=== PATIENT | male | born 1970 | race Caucasian/White ===

== ENCOUNTER 2024-05-29 11:03 | Inpatient (IN) ==
--- NOTE | 2024-05-29 11:57 | Emergency Department Note ---
Impression & Plan Kidney stone on left side, Left flank pain, Calculus of proximal left ureter ED Provider Note NAME: DU [id number] CHUA AGE: 54 SEX: M : 1970 ARRIVES VIA: Walk-In INFORMANT: Patient, ED PROVIDER(S): Luis M Eastman MD CHIEF COMPLAINT: Renal colic HPI: This is a 54-year-old male present for renal colic. Patient states that he has had pain since Saturday, 4/5 days ago. He notes he was given a shot of medicine which improved his pain. He had a outpatient x-rays revealed a 12 mm stone . He does report severe pain. Reports nausea, vomiting and burning/pain with urination. ROS: See above HPI for pertinent positives & negatives. A total of 10 systems reviewed and were otherwise negative. PAST MEDICAL HISTORY: See Below PAST SURGICAL HISTORY: See Below FAMILY HISTORY: See Below SOCIAL HISTORY: See Below HOME MEDICATIONS: See Below ALLERGIES: See Below VITALS: See Below PHYSICAL EXAMINATION: General: resting comfortably in no acute distress Head: Normocephalic and atraumatic Eyes: Normal inspection, extraocular muscles intact Ear, nose, throat: Normal external exam Neck: Normal range of motion Respiratory: lungs clear to auscultation bilaterally Cardiovascular: Regular rate/rhythm, no murmur GI: soft, nontender, no guarding or rebound Extremities: nontender, moves all extremities Neuro: The patient awake and alert, appropriately conversive, no focal deficits, symmetric faces Skin: Warm, dry, and intact MEDICAL DECISION MAKING: This is a 54-year-old male present for renal colic. Patient was found to have a 1.2 cm stone on KUB at the senior care. Will do a CAT scan to assess for hydronephrosis we will give pain control at this time. Patient given 15 mg IV Toradol. -Bloodwork is reviewed showing no significant leukocytosis, anemia, electrolyte or creatinine abnormality -Urinalysis reveals blood without UTI -Patient's CT imaging originally mild hydronephrosis. Patient is having persistent pain. Will admit to hospitalist service. Differential diagnosis: Renal colic, hydronephrosis, pyelonephritis Diagnostics interpreted by me: ECG: None Cardiac Monitoring: An order was placed for continuous cardiac monitoring. The monitor shows a rate of 80 with sinus rhythm. Past Med/Surg History Problem List (Updated 05/30/24 @ 16:35 by Luis M Eastman MD) Calculus of proximal left ureter (Acute) Left flank pain (Acute) Kidney stone on left side (Acute) H/O heart artery stent H/O acute myocardial infarction CAD (coronary artery disease) Chest pain Social History Smoking Status: Never smoker Hx Alcohol Use: No Hx Substance Use: No Preferred Language: Romansh Communication Ability: Effective Cryptologic Support Specialist Required: No Beliefs That Will Affect Care: None Current Living Situation: Other Current Living Situation Comment: [facility]- Inmate Other Information That Helps Us Care for You: No Feels Safe at Home: Yes Safety Concerns: Feels Safe At This Time Allergies Allergies Allergy/AdvReac Type Severity Reaction Status Date / Time Penicillins Allergy Unknown was always Unverified 05/29/24 14:53 told he was allergic Home Meds Home Medications Medication Instructions Recorded Confirmed aspirin 81 mg tablet,delayed 81 mg PO QAM 05/29/24 05/29/24 release atorvastatin 80 mg tablet 80 mg PO HS 05/29/24 05/29/24 lisinopril 5 mg tablet 5 mg PO QAM 05/29/24 05/29/24 metoprolol tartrate 25 mg tablet 25 mg PO BID 05/29/24 05/29/24 nitroglycerin 0.4 mg sublingual 4 mg sublingual DIRECTED PRN 05/29/24 05/29/24 tablet Chest Pain sertraline 50 mg tablet (Zoloft) 50 mg PO HS 05/29/24 05/29/24 Previous Rx's Medication Instructions Recorded tamsulosin 0.4 mg capsule 0.4 mg PO HS #30 caps 05/30/24 Results & Data (ED) Vital Signs Vital Signs - 24 hr 05/29/24 11:17 Temperature 36.4 C L Temperature Source Temporal Artery Scan Pulse Rate 95 H Respiratory Rate 20 Blood Pressure 145/102 H Blood Pressure Mean 116 Pulse Oximetry 93 Oxygen Delivery Method Room Air Sepsis Recent Fever Within 48 Hours No Sepsis New/Unexplained Change in Mental Status N/A Sepsis Action Taken by Nursing No Action Required Laboratory Data 05/29/24 11:59 05/29/24 11:59 Lab Results 05/29/24 Range/Units 11:59 WBC 6.75 (4.8-10.8) K/ul RBC 4.72 (4.70-6.10) M/uL Hgb 13.6 L (14.0-18.0) g/dl Hct 40.4 L (42.0-52.0) % MCV 85.6 (80.0-100.0) fL MCH 28.8 (25.0-34.0) pg MCHC 33.7 (32.0-36.0) g/dL RDW Std Deviation 40.5 (36.4-46.3) fL RDW Coeff of Lynn 13.2 (11.5-14.5) % Plt Count 147 (130-400) K/uL MPV 12.9 H (9.4-12.4) fL Immature Gran % (Auto) 0.6 % Neut % (Auto) 70.7 % Lymph % (Auto) 19.9 % [place] % (Auto) 7.1 % Eos % (Auto) 1.3 % Baso % (Auto) 0.4 % Neut # (Auto) 4.77 (1.40-6.50) K/uL Lymph # (Auto) 1.34 (1.20-3.40) K/uL [place] # (Auto) 0.48 (0.11-0.59) K/uL Eos # (Auto) 0.09 (0.00-0.50) K/uL Baso # (Auto) 0.03 (0.00-0.20) K/uL Immature Gran # (Auto) 0.04 (0.01-0.20) K/uL Sodium 141 (136-145) mmol/L Potassium 3.7 (3.5-5.1) mmol/L Chloride 107 (98-107) mmol/L Carbon Dioxide 27 (21-32) mmol/L Anion Gap 7 (3-11) BUN 14 (6-23) mg/dl Creatinine 1.12 (0.6-1.4) mg/dl Est Cr Clr Drug Dosing 92.1 ml/min eGFR 79.04 BUN/Creatinine Ratio 12.5 (10-20) Glucose 94 (70-99(Fasting)) mg/dl Calcium 9.2 (8.6-10.3) mg/dl Total Bilirubin 1.0 (0.2-1.0) mg/dl AST 17 (13-39) U/L ALT 12 (7-52) U/L Alkaline Phosphatase 73 (34-104) U/L Total Protein 7.4 (6.0-8.3) gm/dl Albumin 4.4 (3.4-5.0) gm/dl Globulin 3.0 (2.5-4.0) gm/dl Albumin/Globulin Ratio 1.5 (0.9-2) Lipase 25 (11-82) U/L Urine Color Yellow Urine Appearance Clear (Clear) Urine pH 6.5 (4.5-7.5) Ur Specific [place] 1.011 (1.000-1.030) Urine Protein Negative (Negative) Urine Glucose (UA) Negative (Negative) Urine Ketones 1+ H (Negative) Urine Blood 2+ H (Negative) Urine Nitrite Negative (Negative) Urine Bilirubin Negative (Negative) Urine Urobilinogen Negative (Negative) Ur Leukocyte Esterase 1+ H (Negative) Urine WBC (Auto) 0-5 (0-5) /hpf Urine RBC (Auto) 3-5 H (0-2) /hpf U Hyaline Cast (Auto) 0-2 (0-2) /lpf U Epithel Cells (Auto) 0-2 (0-2) /hpf Urine Bacteria (Auto) None Seen (None Seen) Administered Medications Aspirin (Aspirin 81 Mg Ectab) [facility] [place] 06/29/24 08:59 Last Admin: 05/30/24 08:24 Dose: Not Given Documented By: LUPEK Atorvastatin Calcium (Atorvastatin 40 Mg Tab) 80 mg PO [facility] Stop: 06/28/24 20:59 Last Admin: 05/29/24 22:48 Dose: 80 mg Documented By: RA Ciprofloxacin (Cipro / D5w) 400 mg in 200 mls @ 100 mls/hr IV PREOP ALDO; Protocol Stop: 05/31/24 05:59 Last Infusion: 05/30/24 14:40 Dose: Infused Documented By: Admin: 05/30/24 11:41 Dose: 100 mls/hr Documented By: NIKHIL Ketorolac Tromethamine (Ketorolac Tromethamine 15 Mg/Ml Vial) 15 mg IV Q6H PRN PRN Reason: Pain (6-10) Stop: 06/03/24 18:20 Last Admin: 05/30/24 15:08 Dose: 15 mg Documented By: Admin: 05/29/24 22:42 Dose: 15 mg Documented By: RA Lisinopril (Lisinopril 5 Mg Tab) 5 mg PO QAM [facility] Stop: 06/29/24 08:59 Last Admin: 05/30/24 08:24 Dose: Not Given Documented By: LUPEK Metoprolol Tartrate (Metoprolol Tartrate 25 Mg Tab) 25 mg PO BID ALDO Stop: 06/28/24 20:59 Last Admin: 05/30/24 08:24 Dose: Not Given Documented By: Admin: 05/29/24 22:48 Dose: 25 mg Documented By: RA Ondansetron HCl (Ondansetron Inj 2 Mg/Ml 2 Ml Vial) 4 mg IV Q6H PRN PRN Reason: Nausea Stop: 06/28/24 18:20 Last Admin: 05/30/24 15:08 Dose: 4 mg Documented By: ISABELLE Sertraline HCl (Sertraline Hcl 50 Mg Tablet) 50 mg PO HS [facility] Stop: 06/28/24 20:59 Last Admin: 05/29/24 22:47 Dose: Not Given Documented By: RA Tamsulosin HCl (Tamsulosin Hcl 0.4 Mg Cap) 0.4 mg PO HS [facility] Stop: 06/28/24 20:59 Last Admin: 05/29/24 22:48 Dose: 0.4 mg Documented By: RA Discontinued Medications Famotidine (Famotidine/Pf 20 Mg/2 Ml Vial) Confirm Administered Dose 20 mg IV .STK-MED ONE Stop: 05/30/24 11:33 Last Admin: 05/30/24 14:39 Dose: Not Given Documented By: ISABELLE Acetaminophen (Ofirmev) 1,000 mg in 100 mls @ 400 mls/hr IV NOW STA Stop: 05/29/24 15:23 Last Infusion: 05/29/24 16:47 Dose: Infused Documented By: Admin: 05/29/24 15:39 Dose: 400 mls/hr Documented By: DOUG Sodium Chloride (Nss) 1,000 mls @ 80 mls/hr IV .[id number] ALDO Stop: 05/30/24 10:29 Last Infusion: 05/30/24 11:40 Dose: Infused Documented By: Admin: 05/29/24 22:00 Dose: 80 mls/hr Documented By: RA Sodium Chloride (Nss) 1,000 mls @ 999 mls/hr IV .Q1H1M ONE Stop: 05/29/24 17:40 Last Infusion: 05/29/24 20:14 Dose: Infused Documented By: Admin: 05/29/24 16:54 Dose: 999 mls/hr Documented By: DOUG Ioversol (Optiray 320 100ml) 94 ml IV ONCE ONE Stop: 05/29/24 13:21 Last Admin: 05/29/24 13:21 Dose: 94 ml Documented By: MIRNA Ketorolac Tromethamine (Ketorolac Tromethamine 15 Mg/Ml Vial) 15 mg IV NOW ONE Stop: 05/29/24 11:39 Last Admin: 05/29/24 12:03 Dose: 15 mg Documented By: LIANA Morphine Sulfate (Morphine Sulfate 4 Mg/Ml 1 Ml Carp\Vial) 4 mg IV NOW STA Stop: 05/29/24 14:57 Last Admin: 05/29/24 15:39 Dose: 4 mg Documented By: DOUG Ondansetron HCl (Ondansetron Inj 2 Mg/Ml 2 Ml Vial) 4 mg IV NOW STA Stop: 05/29/24 11:39 Last Admin: 05/29/24 12:03 Dose: 4 mg Documented By: LIANA Discharge Plan Visit Data Chief Complaint: Kidney Stone Stated Complaint: KIDNEY STONE ED Provider: Luis M Eastman Discharge Problem: Kidney stone on left side, Left flank pain, Calculus of proximal left ureter Patient Disposition: Admitted As Inpatient Discharge Instructions Interventions: ED Discharge Assessment Last Done: 05/29/24 18:01
[2024-05-29] MEDS: KETOROLAC TROMETHAMINE 15 MG/ML VIAL IV ONE (12:03)
[2024-05-29] MEDS: ONDANSETRON INJ 2 MG/ML 2 ML VIAL IV STA (12:03)
[2024-05-29 12:26] LABS: Basophils # (auto) 0.03 K/uL (0.00-0.20); Basophils % (auto) 0.4 %; Eosinophils # (auto) 0.09 K/uL (0.00-0.50); Eosinophils % (auto) 1.3 %; Hematocrit (blood only) 40.4 % (42.0-52.0); Hemoglobin 13.6 g/dl (14.0-18.0); Immature Granulocytes # (auto) 0.04 K/uL (0.01-0.20); Immature Granulocytes % (auto) 0.6 %; Lymphocytes # (auto) 1.34 K/uL (1.20-3.40); Lymphocytes % (auto) 19.9 %; Mean Corpuscular Hemoglobin 28.8 pg (25.0-34.0); Mean Corpuscular Hgb Conc 33.7 g/dL (32.0-36.0); Mean Corpuscular Volume 85.6 fL (80.0-100.0); Mean Platelet Volume 12.9 fL (9.4-12.4); Monocytes # (auto) 0.48 K/uL (0.11-0.59); Monocytes % (auto) 7.1 %; Neutrophils # (auto) 4.77 K/uL (1.40-6.50); Neutrophils % (auto) 70.7 %; Platelet Count 147 K/uL (130-400); RDW Coefficient of Variation 13.2 % (11.5-14.5); RDW Standard Deviation 40.5 fL (36.4-46.3); Red Blood Count 4.72 M/uL (4.70-6.10); White Blood Count 6.75 K/ul (4.8-10.8)
[2024-05-29 12:38] LABS: Appearance Urine Clear (Clear); Bacteria Urine Automated None Seen (None Seen); Bilirubin Urine Negative (Negative); Blood Urine 2+ (Negative); Cast Urine Automated 0-2 /lpf (0-2); Color Urine Yellow; Epithelial Cell Urine Auto 0-2 /hpf (0-2); Glucose Urine UA Negative (Negative); Ketones Urine 1+ (Negative); Leukocyte Esterase Urine 1+ (Negative); Nitrite Urine Negative (Negative); Protein Urine Negative (Negative); Specific Gravity Urine 1.011 (1.000-1.030); Urobilinogen Urine Negative (Negative); WBC Urine Automated 0-5 /hpf (0-5); pH Urine 6.5 (4.5-7.5)
[2024-05-29 12:41] LABS: Albumin Globulin Ratio 1.5 (0.9-2); Albumin Level 4.4 gm/dl (3.4-5.0); BUN Creatinine Ratio 12.5 (10-20); Calcium 9.2 mg/dl (8.6-10.3); Creatinine Clr Calc Pharmacy 92.1 ml/min; Potassium 3.7 mmol/L (3.5-5.1); Total Protein 7.4 gm/dl (6.0-8.3)
[2024-05-29] MEDS: OPTIRAY 320 100ml IV ONE (13:21)
--- NOTE | 2024-05-29 13:34 | CT Scan Report ---
ABDOMEN AND PELVIS CT WITH IV CONTRAST CT DOSE: 1740.64 mGy.cm HISTORY: renal colic, left (12 mm on xr), hydro? TECHNIQUE: Multiaxial CT images of the abdomen and pelvis were performed following the IV administrat ion of 90 cc of Optiray, A dose lowering technique was utilized adhering to the principles of ALARA. COMPARISON STUDY: None FINDINGS: There are diffuse coronary artery calcifications. ABDOMEN: Liver, gallbladder, spleen, pancreas, and adrenal glands are unremarkable. There are a few s mall bilateral renal calculi. There is no hydronephrosis on the right. There is mild hydronephrosis o n the left. There is a 1.2 cm calculus proximally in the left ureter. No other ureteral calculi are s een. No abdominal aortic aneurysm. Pelvis: Prostate is enlarged. Urinary bladder is nondistended. No bowel inflammation or obstruction. No free fluid, free air, or abscess. Normal appendix. No enlarged adenopathy. There are mild degenera tive changes at the lumbar spine and hips. IMPRESSION: 1.2 cm calculus proximal left ureter causes mild left hydronephrosis. ACT 112: Negative or not required by law. The above report was generated using voice recognition software. It may contain grammatical, syntax o r spelling errors. Electronically signed by: Adrian Galindo M.D. 05/29/2024 1:32 PM
--- NOTE | 2024-05-29 15:26 | History & Physical Report ---
Date of Service May 29, 2024 Assessment & Plan (1) Kidney stone on left side: (2) CAD (coronary artery disease): (3) H/O heart artery stent: Plan This patient is a 54-year-old male who came in on 05/29 for severe left lower back and flank pain, nausea, and vomiting. H/o kidney stones. Found to have a kidney stone on arrival. #Left nephrolithiasis A/P CT revealed 1.2 cm calculus proximal left ureter with mild left hydronephrosis; likely to require urologic intervention Urology consult appreciated No urologic intervention planned for 05/29 N.p.o. at midnight on 05/30 Tamsulosin 0.4 mg p.o. HS Urine strainer NSS 1000 mL IV at 80 mL/hr x 1L IV acetaminophen and Toradol as needed for pain control IV antiemetics PRN # CAD s/p heart stents Continue aspirin daily Disposition: Ad[facility] to [facility] VTE PPx: SCDs History of Present Illness Chief Complaint: Kidney stone Primary Care Provider: ANGEL Ramsay Adrian is a 54-year-old male with PMH of [place] and CAD. He presented on 05/29 from [facility] for severe left back/flank pain, nausea, and vomiting. He rates the pain in his left lower back a 9/10 at present, and 10/10 at worst. The pain medicine given in the ED has not helped much. He reports he was given Toradol prior to coming into the hospital. He characterizes it as a throbbing pain with occasional stab/shooting towards the left side of his groin. Pain does radiate around the left flank. Patient does have history of multiple kidney stones in the past, with the last one being 4 to 5 years ago. Patient took his regular morning medicine today; no recent change in medications. He take aspirin daily for history of heart stents. Patient reports he has not had any food to eat yet today on 05/29; last ate on 05/28. Patient has a listed PCN allergy, but is unsure what happens when he takes penicillin; no prior history of anaphylaxis or throat closure. Patient is hypertensive at 144/99 at time of admission; vitals otherwise stable. ED course: Toradol 15 mg IV Morphine 4 mg IV Acetaminophen 1000 mg IV Zofran 4 mg IV ROS: Patient endorses left flank pain, chills, nausea, dry heaving, mild chest pain (unsure if it is left flank pain), chest palpitations/SOB (associated to with stabbing pain), and burning with urination. Patient denies fever, vomiting, blood in the urine, diarrhea, or blood in the stool. Allergies Allergy/AdvReac Type Severity Reaction Status Date / Time Penicillins Allergy Unknown was always Unverified 05/29/24 14:53 told he was allergic Home Medications Medication Instructions Recorded Confirmed Type aspirin 81 mg tablet,delayed 81 mg PO QAM 05/29/24 05/29/24 History release atorvastatin 80 mg tablet 80 mg PO HS 05/29/24 05/29/24 History lisinopril 5 mg tablet 5 mg PO QAM 05/29/24 05/29/24 History metoprolol tartrate 25 mg tablet 25 mg PO BID 05/29/24 05/29/24 History nitroglycerin 0.4 mg sublingual 4 mg sublingual DIRECTED PRN 05/29/24 05/29/24 History tablet Chest Pain sertraline 50 mg tablet (Zoloft) 50 mg PO HS 05/29/24 05/29/24 History Past Med/Surg History Problem List (Updated 05/29/24 @ 18:45 by AMMON Oliver) Calculus of proximal left ureter Left flank pain Kidney stone on left side H/O heart artery stent H/O acute myocardial infarction CAD (coronary artery disease) Chest pain Social History Smoking Status: Never smoker Hx Alcohol Use: No Hx Substance Use: No Preferred Language: Stateless Communication Ability: Effective Medical Certification Specialist Required: No Beliefs That Will Affect Care: None Current Living Situation: Other Current Living Situation Comment: [facility]- Inmate Other Information That Helps Us Care for You: No Feels Safe at Home: Yes Safety Concerns: Feels Safe At This Time Review of Systems Review of Systems: See HPI above Physical Exam Physical Exam: General: no acute distress; non-toxic appearing; well-nourished; cooperative; SpO2 97% on RA HEENT: normocephalic, atraumatic; no scleral icterus; PERRLA; vision and hearing grossly intact Neck: supple; no lymphadenopathy; trachea midline Skin: warm, dry without signs of tenting; no cyanosis; no rashes, bruising, lesions, or erythema noted CV: chest wall NTP; RRR; S1/S2 normal; no murmurs/rubs/gallops; pulses intact and symmetric at radial, DP, and PT Lungs: no acute respiratory distress; symmetrical chest wall expansion; clear breath sounds across all lung contreras w/o adventitious sounds; no wheezing ABD: Soft, NTP; BS present; no rebound/guarding; no distention MSK: no tics or fasciculations; no edema noted in the LEs b/l, nonerythematous Neuro: A&Ox3; normal mood and affect; fluent speech; no focal deficits; sensation grossly intact in the LEs b/l Results & Data Results & Data Vital Signs (Past 12 Hours) Vital Signs Temp Pulse Pulse Resp BP BP Pulse Ox 05/29/24 14:30 80 16 144/99 H 97 05/29/24 13:04 83 16 142/103 H 97 05/29/24 11:17 36.4 C L 95 H 20 145/102 H 93 O2 Del Method 05/29/24 14:30 05/29/24 13:04 Room Air 05/29/24 11:17 Room Air Laboratory Results Abnormal lab results 05/29/24 Range/Units 11:59 Hgb 13.6 L (14.0-18.0) g/dl Hct 40.4 L (42.0-52.0) % MPV 12.9 H (9.4-12.4) fL Urine Ketones 1+ H (Negative) Urine Blood 2+ H (Negative) Ur Leukocyte Esterase 1+ H (Negative) Urine RBC (Auto) 3-5 H (0-2) /hpf Diagnostic Findings Abdomen/Pelvis CT 05/29/24 11:[address] WITH IV CONTRAST CT DOSE: 1740.64 mGy.cm HISTORY: renal colic, left (12 mm on xr), hydro? TECHNIQUE: Multiaxial CT images of the abdomen and pelvis were performed following the IV administration of 90 cc of Optiray, A dose lowering technique was utilized adhering to the principles of ALARA. COMPARISON STUDY: None FINDINGS: There are diffuse coronary artery calcifications. ABDOMEN: Liver, gallbladder, spleen, pancreas, and adrenal glands are unremarkable. There are a few small bilateral renal calculi. There is no hydronephrosis on the right. There is mild hydronephrosis on the left. There is a 1.2 cm calculus proximally in the left ureter. No other ureteral calculi are seen. No abdominal aortic aneurysm. Pelvis: Prostate is enlarged. Urinary bladder is nondistended. No bowel inflammation or obstruction. No free fluid, free air, or abscess. Normal appendix. No enlarged adenopathy. There are mild degenerative changes at the lumbar spine and hips. IMPRESSION: 1.2 cm calculus proximal left ureter causes mild left hydro nephrosis. ACT 112: Negative or not required by law. The above report was generated using voice recognition software. It may contain grammatical, syntax or spelling errors. Electronically signed by: Adrian Galindo M.D. 05/29/2024 1:32 PM Supervising Physician Co-Signing Physician Notes I personally saw and examined the patient. I independently reviewed the labs, imaging, problem list, medication list, past medical history and family history. I verified all phillips points and agree with Jose M Phan PA-C with the following exceptions and/or additions: 54 year old male presents to the ER with left flank pain O/E HS RRR, no murmurs, Chest CTAB, ABdo SNT, Left CVA tenderness A/P Obstructing ureterolithiasis - consult urology, pain management, IV fluids, tamsulosin PG Care Time/CCT Total # of Minutes Spent Total Time Spent with Patient: Total time spent is greater than 50% in coordination of care (as documented) at patient's floor/unit and/or counseling patient: Coding [place] [address] INT INP/OBS CARE 2/55MIN Patient Type Established Medical Decision Making Moderate Complexity Diagnoses Kidney stone on left side N20.0 CAD (coronary artery disease) I25.10 H/O heart artery stent Z95.5
[2024-05-29] MEDS: MoRPHine SULFATE 4 MG/ML 1 ML CARP\\VIAL IV STA (15:39)
[2024-05-29] MEDS: ACETAMINOPHEN 1,000 MG/100 ML VIAL IV STA (15:39)
[2024-05-29] MEDS: SODIUM CHLORIDE 0.9% 1,000 ML IV ONE (16:54)
[2024-05-29] MEDS ORDERED: ACETAMINOPHEN 1,000 MG/100 ML VIAL IV PRN (18:21)
--- NOTE | 2024-05-29 18:35 | Urology Consultation ---
Date of Consultation May 29, 2024 Assessment & Plan (1) Left flank pain: (2) Calculus of proximal left ureter: 54-year-old male admitted with severe left back/flank pain, nausea. CT abd/pelvis reviewed and notable for an obstructing 1.2 cm left proximal ureteral stone with additional bilateral nephrolithiasis. He is afebrile, vital signs stable. Labs reviewed - white count and creatinine normal. Urinalysis not indicative of infection. No indication for acute intervention today. Recommend hydration, Tamsulosin, pain management. Will make him NPO at midnight and reevaluate him in the AM. Consider inpatient intervention pending clinical progress. Please consult our service urgently if patient develops fever >101F, intractable pain or nausea, as this will necessitate urgent surgical intervention. History of Present Illness Reason for Consultation: Obstructive uropathy History of Present Illness 54-year-old male with PMH of [place] and CAD, s/p cardiac stenting who presented on 05/29 from [facility] for severe left back/flank pain, nausea. His vital signs were reviewed - afebrile. Labs reviewed - White count 6.75 Hgb 13.6 Creatinine 1.12 Urinalysis not indicative of infection. CT abd/pelvis reviewed and notable for an obstructing 1.2 cm left proximal ureteral stone with additional bilateral nephrolithiasis. Patient does have a history of stones, passed one stone 4-5 years ago. He was examined in the ED, guards present. He states left flank pain has been present for 3 days. Pain can be severe in nature and can radiate into his left abdomen. Denies dysuria or hematuria. Feels his urine output has been less. Does have nausea and has been intermittently dry heaving. Denies fevers but has chills when his pain becomes severe. Denies additional urologic concerns today. Allergies Allergy/AdvReac Type Severity Reaction Status Date / Time Penicillins Allergy Unknown was always Unverified 05/29/24 14:53 told he was allergic Home Medications Medication Instructions Recorded Confirmed Type aspirin 81 mg tablet,delayed 81 mg PO QAM 05/29/24 05/29/24 History release atorvastatin 80 mg tablet 80 mg PO HS 05/29/24 05/29/24 History lisinopril 5 mg tablet 5 mg PO QAM 05/29/24 05/29/24 History metoprolol tartrate 25 mg tablet 25 mg PO BID 05/29/24 05/29/24 History nitroglycerin 0.4 mg sublingual 4 mg sublingual DIRECTED PRN 05/29/24 05/29/24 History tablet Chest Pain sertraline 50 mg tablet (Zoloft) 50 mg PO HS 05/29/24 05/29/24 History Patient History Social History Smoking Status: Never smoker Hx Alcohol Use: No Hx Substance Use: No Preferred Language: Macedonian Communication Ability: Effective 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: No Beliefs That Will Affect Care: None Current Living Situation: Other Current Living Situation Comment: [facility]- [facility] Other Information That Helps Us Care for You: No Feels Safe at Home: Yes Safety Concerns: Feels Safe At This Time Review of Systems Constitutional: as per Subjective / HPI; no fever Eyes: no problem reported Ear, Nose, Mouth, Throat: no dizziness Respiratory: no cough and no dyspnea Cardiovascular: no chest pain and no edema Gastrointestinal: as per Subjective / HPI Genitourinary: + as per Subjective / HPI Musculoskeletal: as per Subjective / HPI Neurologic: no dizziness Endocrine: no fatigue Hematologic / Lymphatic: no easy bleeding and no easy bruising Physical Exam Constitutional: well developed, well nourished and comfortable; no acute distress Eyes: no eyelid abnormality ENMT: Ears: no external ear abnormality Neck: normal visual inspection and trachea midline Respiratory: normal respiratory effort and able to speak in complete sentences; no respiratory distress and no audible wheezes Gastrointestinal (Abdomen): Inspection/Auscultation: abdomen normal to inspection; abdomen not distended Musculoskeletal: Head/Neck/Chest: normocephalic and head atraumatic Skin: No visible rashes, lesions, or wounds noted. Color normal. Neurologic: moves all extremities and awake Psychiatric: Orientation: alert, oriented x 3 and cooperative Affect: euthymic affect Results & Data Vital Signs (Past 12 Hours) Vital Signs Temp Pulse Pulse Resp BP BP Pulse Ox 05/29/24 14:30 80 16 144/99 H 97 05/29/24 13:04 83 16 142/103 H 97 05/29/24 11:17 36.4 C L 95 H 20 145/102 H 93 O2 Del Method 05/29/24 14:30 05/29/24 13:04 Room Air 05/29/24 11:17 Room Air PG Care Time/CCT Total # of Minutes Spent Total Time Spent with Patient: Total time spent is greater than 50% in coordination of care (as documented) at patient's floor/unit and/or counseling patient: Coding Level of Care Code 02386 IN/OBS CONSULT LVL 3,45M Diagnoses Left flank pain R10.9 Calculus of proximal left ureter N20.1
[2024-05-29] MEDS: SODIUM CHLORIDE 0.9% 1,000 ML IV SCH (22:00)
[2024-05-29] MEDS: KETOROLAC TROMETHAMINE 15 MG/ML VIAL IV PRN (22:42)
[2024-05-29] MEDS: SERTRALINE HCL 50 MG TABLET PO SCH (22:47)
[2024-05-29] MEDS: TAMSULOSIN HCL 0.4 MG CAP PO SCH (22:48)
[2024-05-29] MEDS: METOPROLOL TARTRATE 25 MG TAB PO SCH (22:48)
[2024-05-29] MEDS: ATORVASTATIN 40 MG TAB PO SCH (22:48)
[2024-05-30] MEDS: ASPIRIN 81 MG ECTAB PO SCH (08:24)
[2024-05-30] MEDS: lisinopril 5 MG TAB PO SCH (08:24)
[2024-05-30] MEDS ORDERED: LIDOCAINE 2% 2 ML VIAL/AMP(20MG/ML) INFIL ONE (10:26)
[2024-05-30] MEDS ORDERED: MIDAZOLAM HCL 1 MG/ML 2ML VIAL ONE (10:26)
[2024-05-30] MEDS ORDERED: PROPOFOL IV EMULSION 10 MG/ML 20 ML VIAL IV ONE (10:26)
[2024-05-30] MEDS ORDERED: fentaNYL citrate PF 100 MCG/2 ML VIAL ONE (10:26)
[2024-05-30] MEDS ORDERED: ONDANSETRON INJ 2 MG/ML 2 ML VIAL ONE (10:26)
--- NOTE | 2024-05-30 10:34 | Urology Progress Note ---
Date of Service May 30, 2024 Assessment & Plan (1) Calculus of proximal left ureter: Plan: Obstructing left ureteral calculus with additional renal stones Pain control remains an issue Plan for cystoscopy left ureteral stent placement today Can be discharged back to the [facility] after surgery if he remains stable Outpatient follow-up for definitive stone treatment Consent on the chart, risks, benefits, expectations reviewed in detail Admission and Anticipated Discharge Date Admission Date: May 29, 2024 Subjective No fevers or chills overnight but continues to have relatively significant left flank pain and mild nausea No stone passage Anxious for relief Physical Exam Physical Exam: Tender in the left flank, nontoxic-appearing but uncomfortable in. Constitutional: well developed and well nourished Neck: neck nontender Respiratory: normal respiratory effort; no respiratory distress and does not use accessory muscles Cardiovascular: Rate/Rhythm: regular rate Vessels: radial pulses present Extremities: no edema Gastrointestinal (Abdomen): Inspection/Auscultation: abdomen normal to inspection Percussion/Palpation: + abdomen tender and abdomen soft; no guarding Musculoskeletal: Head/Neck/Chest: normocephalic and head atraumatic Extremities: extremities normal to inspection Skin: no rashes and no lesions Trauma: no evidence of skin trauma Neurologic: awake; not obtunded Speech / Cognition: normal speech Motor/Sensory: no tremor Psychiatric: Orientation: alert and oriented x 3 Genitourinary: no CVA tenderness Lymphatic: no lymphadenopathy Results & Data Vital Signs (Past 12 Hours) Vital Signs Temp Pulse Resp BP Pulse Ox O2 Del Method 05/30/24 08:39 36.5 C 62 18 143/80 H 98 Room Air 05/29/24 22:45 36.4 C L 66 16 119/78 95 Room Air PG Care Time/CCT Total # of Minutes Spent Total Time Spent with Patient: Total time spent is greater than 50% in coordination of care (as documented) at patient's floor/unit and/or counseling patient: Coding Level of Care Code 28598 SUB INP/OBS CARE 03/14MIN Diagnoses Calculus of proximal left ureter N20.1
--- NOTE | 2024-05-30 10:34 | Anesthesiology Consultation ---
Date of Service May 30, 2024 Assessment & Plan Chart Review Chart Review: Acceptable Risk for Surgery and Patient NOT seen in Pre Admission Testing Consults Requested none ASA [id number] Proposed Anesthesia Anesthesia Type: MAC History Surgery Operation Date: 05/30/24 17:00 Proposed Procedures p Cystoscopy - Franko Santana MD s Ureteral Stent Insertion/Removal on the left(Left) - Franko Santana MD Height/Weight Height: 5 ft 9 in Weight: 104.9 kg Allergies Allergy/AdvReac Type Severity Reaction Status Date / Time Penicillins Allergy Unknown was always Unverified 05/29/24 14:53 told he was allergic Medications Home Medications Medication Instructions Recorded Confirmed Last Taken aspirin 81 mg tablet,delayed 81 mg PO QAM 05/29/24 05/29/24 05/29/24 release atorvastatin 80 mg tablet 80 mg PO HS 05/29/24 05/29/24 Unknown lisinopril 5 mg tablet 5 mg PO QAM 05/29/24 05/29/24 05/29/24 metoprolol tartrate 25 mg tablet 25 mg PO BID 05/29/24 05/29/24 05/29/24 nitroglycerin 0.4 mg sublingual 4 mg sublingual DIRECTED PRN 05/29/24 05/29/24 Unknown tablet Chest Pain sertraline 50 mg tablet (Zoloft) 50 mg PO HS 05/29/24 05/29/24 Unknown Active Medications Generic Name Dose Route Start Last Admin Trade Name Freq PRN Reason Stop Dose Admin Aspirin 81 mg 05/30/24 09:00 05/30/24 08:24 Aspirin 81 Mg Ectab PO 06/29/24 08:59 Not Given QAM ALDO Atorvastatin Calcium 80 mg 05/29/24 21:00 05/29/24 22:48 Atorvastatin 40 Mg Tab PO 06/28/24 20:59 80 mg HS ALDO Administration Ketorolac Tromethamine 15 mg 05/29/24 18:21 05/29/24 22:42 Ketorolac Tromethamine 15 Mg/Ml Vial IV 06/03/24 18:20 15 mg Q6H PRN Administration Pain (6-10) Lisinopril 5 mg 05/30/24 09:00 05/30/24 08:24 Lisinopril 5 Mg Tab PO 06/29/24 08:59 Not Given QAM ALDO Metoprolol Tartrate 25 mg 05/29/24 21:00 05/30/24 08:24 Metoprolol Tartrate 25 Mg Tab PO 06/28/24 20:59 Not Given BID ALDO Sertraline HCl 50 mg 05/29/24 21:00 05/29/24 22:47 Sertraline Hcl 50 Mg Tablet PO 06/28/24 20:59 Not Given HS ALDO Tamsulosin HCl 0.4 mg 05/29/24 21:00 05/29/24 22:48 Tamsulosin Hcl 0.4 Mg Cap PO 06/28/24 20:59 0.4 mg HS ALDO Administration Past Medical History obese HTN HLD ASCVD CAD S/P Infer. RI S/P PTCA/stents Left hydronephrosis Exercise / Class Metabolic Activity II 4-5 Yardwork/Stairs/Walk up hill Past Anesthesia History No Hx of Anesthesia Complications and No Family Hx of Anesthesia Complications History of PONV No Hx of PONV and No Hx of Motion Sickness Social History Smoking Status: Never smoker Hx Alcohol Use: No Hx Substance Use: No Physical Exam Vital Signs Last Vital Signs Temp 36.5 C 05/30/24 08:39 Pulse 62 05/30/24 08:39 Resp 18 05/30/24 08:39 BP 143/80 H 05/30/24 08:39 Pulse Ox 98 05/30/24 08:39 O2 Del Method Room Air 05/30/24 08:39 Testing Laboratory Results 05/29/24 11:59 05/29/24 11:59 Urine Color Yellow 05/29/24 11:59 Urine Appearance Clear (Clear) 05/29/24 11:59 Urine pH 6.5 (4.5-7.5) 05/29/24 11:59 Ur Specific [place] 1.011 (1.000-1.030) 05/29/24 11:59 Urine Protein Negative (Negative) 05/29/24 11:59 Urine Glucose (UA) Negative (Negative) 05/29/24 11:59 Urine Ketones 1+ (Negative) H 05/29/24 11:59 Urine Nitrite Negative (Negative) 05/29/24 11:59 Ur Leukocyte Esterase 1+ (Negative) H 05/29/24 11:59 Urine WBC (Auto) 0-5 /hpf (0-5) 05/29/24 11:59 Urine RBC (Auto) 3-5 /hpf (0-2) H 05/29/24 11:59 U Hyaline Cast (Auto) 0-2 /lpf (0-2) 05/29/24 11:59 U Epithel Cells (Auto) 0-2 /hpf (0-2) 05/29/24 11:59 Urine Bacteria (Auto) None Seen (None Seen) 05/29/24 11:59 Electrocardiogram Date: 05/30/24 Findings: + NSR @ (@ 65 w/ 1st degree AVB;? infer infarct,age ?)
[2024-05-30] MEDS ORDERED: SCOPOLAMINE 1 MG/72 HR TDSY PATCH TD ONE (11:34)
[2024-05-30] MEDS ORDERED: ePHEDrine sulfate 50 MG/ML AMP IV PRN (11:39)
[2024-05-30] MEDS ORDERED: NALOXONE HCL 0.4 MG/1 ML VIAL/CARP IV PRN (11:39)
[2024-05-30] MEDS ORDERED: ONDANSETRON INJ 2 MG/ML 2 ML VIAL IV PRN (11:39)
[2024-05-30] MEDS ORDERED: FLUMAZENIL 0.1 MG/1 ML 10 ML VIAL IV PRN (11:39)
[2024-05-30] MEDS ORDERED: ATROPINE SULFATE 0.1 MG/ML 10ML SYR IV PRN (11:39)
[2024-05-30] MEDS ORDERED: PROMETHAZINE HCL 6.25 MG in SODIUM CHLORIDE 0.9% 50 ML IV PRN (11:39)
[2024-05-30] MEDS ORDERED: LABETALOL HCL IV 5 MG/ML 20ML IV PRN (11:39)
[2024-05-30] MEDS ORDERED: fentaNYL citrate PF 100 MCG/2 ML VIAL IV PRN (11:39)
[2024-05-30] MEDS: CIPROFLOXACIN / D5W 400 MG/200 ML BAG IV SCH (11:41)
--- NOTE | 2024-05-30 12:04 | Operative Report ---
PG Post Operative Report Pre & Post Diagnosis Operation Date: 05/30/24 17:00 Pre-Op Diagnosis: 1.2CM Left Kidney Stone Post-Op Diagnosis: 1.2CM Left Kidney Stone I identified the patient and participated in the time-out.: Yes Procedure Operation Date: 05/30/24 17:00 Actual Procedures p Cystoscopy(Not Applicable) - Franko Santana MD s Ureteral Stent Insertion on the left(Left) - Franko Santana MD Surgeon Franko Santana MD Roof Bolter none Estimated Blood Loss 0 Findings Consistent with Post-Op Diagnosis Specimens none Description of Procedure The patient was identified in the preoperative holding area, appropriate informed consents were reviewed and completed and the patient was transferred to the operative suite. Upon arrival, appropriate antibiotics and anesthesia were administered and the patient was placed in dorsal lithotomy position and prepped and draped in sterile fashion. We in the case to pass a 21 Romanian cystoscope with 30 degree lens per inspection revealed a healthy-appearing urethra and moderately enlarged prostate. Full- spectrum the bladder was conducted revealing no mucosal abnormalities. Ureteral orifices were in orthotopic position. I cannulated the left UO with a sensor wire and a 5 Romanian open-ended catheter. Wire advanced the kidney without difficulty and I could visualize stones at the UPJ and renal pelvis I then proceeded to place a 7 Romanian by 26 cm Coloplast double-J ureteral stent with a good curl in the kidney as well as the bladder. The case was concluded and he was reversed of anesthesia and taken to the recovery room in stable condition peer there were no complications. I attest to the content of the Intraoperative Record and any orders documented therein. Any exceptions are noted below.
[2024-05-30] MEDS ORDERED: DEXAMETHASONE SOD INJ 4 MG/ML VIAL ONE (12:22)
[2024-05-30] MEDS ORDERED: METOCLOPRAMIDE HCL INJ 5 MG/ML 2 ML VIAL ONE (12:22)
--- NOTE | 2024-05-30 12:35 | Electrocardiogram Report ---
Test Reason : Blood Pressure : */* mmHG Vent. Rate : 63 BPM Atrial Rate : 63 BPM P-R Int : 214 ms QRS Dur : 116 ms QT Int : 400 ms P-R-T Axes : 44 -5 -6 degrees QTcB Int : 409 ms Sinus rhythm with 1st degree A-V block Inferior infarct , age undetermined Abnormal ECG No previous ECGs available Confirmed by Nimesh Holt ([id number]) on 05/30/2024 12:34:38 PM Referred By: Sobia ORTIZ Confirmed By: Nimesh Holt
--- NOTE | 2024-05-30 12:44 | Anesthesiology Progress Note ---
Date of Service May 30, 2024 Anesthesia Post Procedure Vital Signs Vital Signs: Temp Pulse Pulse Resp BP Pulse Ox O2 Del Method 05/30/24 12:40 36.4 C L 60 13 122/68 97 Room Air 05/30/24 12:30 72 12 119/74 97 Room Air 05/30/24 12:20 56 L 16 116/74 99 Oxymask 05/30/24 12:14 36.1 C L 60 18 111/76 97 Oxymask 05/30/24 08:39 36.5 C 62 18 143/80 H 98 Room Air 05/29/24 22:45 36.4 C L 66 16 119/78 95 Room Air 05/29/24 18:21 36.6 C 88 18 157/88 H 96 Room Air 05/29/24 17:30 74 17 140/91 94 Room Air 05/29/24 16:00 75 15 150/93 H 97 Room Air 05/29/24 14:30 80 16 144/99 H 97 05/29/24 13:04 83 16 142/103 H 97 Room Air O2 Flow Rate 05/30/24 12:40 05/30/24 12:30 05/30/24 12:20 3 05/30/24 12:14 6 05/30/24 08:39 05/29/24 22:45 05/29/24 18:21 05/29/24 17:30 05/29/24 16:00 05/29/24 14:30 05/29/24 13:04 Pain Intensity Left Lower Back: Pain Intensity: 3 Transfer of Care Handoff Completed per policy Notes Mental Status: alert / awake / arousable Patient Amnestic to Procedure: Yes Nausea / Vomiting: adequately controlled Pain: adequately controlled Airway Patency, RR, SpO2: stable & adequate BP & HR: stable & adequate Hydration State: stable & adequate Anesthetic Complications: no major complications apparent
[2024-05-30 13:31] VITALS: RESP 18; O2SAT 96
--- NOTE | 2024-05-30 14:07 | Fluoroscopy Report ---
FL KUB CLINICAL HISTORY: LEFT STENT COMPARISON STUDY: None FLUOROSCOPY TIME: 7 seconds FLUOROSCOPY IMAGES: 2 EXPOSURE DOSE: 3 mGy FINDINGS: Fluoroscopy was provided for urologic procedure. IMPRESSION: Intraoperative fluoroscopy. ACT 112: Negative or not required by law. Electronically signed by: Adrian Galindo M.D. 05/30/2024 2:06 PM
[2024-05-30] MEDS: FAMOTIDINE/PF 20 MG/2 ML VIAL IV ONE (14:39)
--- NOTE | 2024-05-30 15:05 | Discharge Summary ---
Discharge Summary Date of Service May 30, 2024 Principal Dx & Hospital Course #1 = Principal Diagnosis (1) Kidney stone on left side: (2) CAD (coronary artery disease): (3) H/O heart artery stent: Plan #Left nephrolithiasis This patient is a 54-year-old male who came in on 05/29 for severe left lower back and flank pain, nausea, and vomiting. H/o kidney stones. Found to have a 1.2 cm calculus proximal left ureter with mild left hydronephrosis. Urology consulted - s/p stent placement with Dr. poon on 05/30. Continue flomax daily. Tylenol and ibuprofen as needed for pain control. No evidence for infection on UA. Outpatient follow up with urology for stone treatment. # CAD s/p heart stents Continue aspirin daily Disposition: return to retirement today discussed with front office spec [facility] provider, valentino Shea For Next Care Provider Medication Changes From Visit flomax daily Admission HPI Per Admitting Provider Adrian is a 54-year-old male with PMH of KS and CAD. He presented on 05/29 from [facility] for severe left back/flank pain, nausea, and vomiting. He rates the pain in his left lower back a 9/10 at present, and 10/10 at worst. The pain medicine given in the ED has not helped much. He reports he was given Toradol prior to coming into the hospital. He characterizes it as a throbbing pain with occasional stab/shooting towards the left side of his groin. Pain does radiate around the left flank. Patient does have history of multiple kidney stones in the past, with the last one being 4 to 5 years ago. Patient took his regular morning medicine today; no recent change in medications. He take aspirin daily for history of heart stents. Patient reports he has not had any food to eat yet today on 05/29; last ate on 05/28. Patient has a listed PCN allergy, but is unsure what happens when he takes penicillin; no prior history of anaphylaxis or throat closure. Patient is hypertensive at 144/99 at time of admission; vitals otherwise stable. ED course: Toradol 15 mg IV Morphine 4 mg IV Acetaminophen 1000 mg IV Zofran 4 mg IV ROS: Patient endorses left flank pain, chills, nausea, dry heaving, mild chest pain (unsure if it is left flank pain), chest palpitations/SOB (associated to with stabbing pain), and burning with urination. Patient denies fever, vomiting, blood in the urine, diarrhea, or blood in the stool. Discharge Exam General: NAD, VS as above Resp: normal respiratory effort, lungs clear to auscultation CV: RRR, no murmur, Abd: normal bowel sounds, non tender, no hepatosplenomegaly : no morrow, has urinated spontaneously since procedure Extremities: Moves all extremities, handcuffs in place x 2 Neuro: A&O x3, Skin: intact, no lesions noted Discharge Plan Discharge Items [facility] Disposition[facility] Reason For Visit: 1.2CM LEFT KIDNEY STONE Discharge Diagnosis: Left kidney stone Activity: Resume your previous activity Non-emergency contact: Urologist Call non-emergency contact if: you have any medication questions, your symptoms worsen, your pain is not controlled, your pain is worsening and your temperature is above 101 Follow-up/Referrals: Franko Santana MD [Physician] - (follow up for stent removal and stone treatment ) Sobia ORTIZ [Primary Care Provider] - Diet: Heart Healthy Addtl Attending Provider Instructions: You were hospitalized after having back pain found to be from kidney stones. You were seen by urology and taken to the OR to have a stent placed on 05/[address] Santana. You will need to follow up with urology for stent removal and stone treatment. Medication Changes/Recommendations: * Continue flomax daily while stent in place - this is to help with easier passage of urine * Pyridium as needed for pain with urination - this can cause your urine/feces to be discolored/orange * Pain control - can utilize tylenol and ibuprofen It is normal to still have discomfort in the flank area while the stent is in place, this pain may be worse with movement. Blood tinged urine can also be common. If you are having persistent dark bloody urine or thick bloody urine for >8 hours please contact your urologist. It is important that you are staying hydrated while the stent is in place. The urology office should be contacting you to schedule and appointment. Please contact the urologist if you have any uncontrolled pain, fevers > 100F, or inability to urinate. [phone] Pending Studies at Discharge: No Stand-Alone Forms: My [facility] Skilled Items Patient informed of condition?: Yes Discharge Level of Care: Other Communicable Disease: No Discharge Prognosis: Stable Lines: None Urinary Catheter: No Medications and DC Order Prescriptions: New tamsulosin 0.4 mg Capsule 0.4 mg PO HS Qty: 30 0RF Continued atorvastatin 80 mg Tablet 80 mg PO HS aspirin [Aspir-81] 81 mg Tablet,Delayed Release (Dr/Ec) 81 mg PO QAM nitroglycerin 0.4 mg Tablet, Sublingual 4 mg sublingual DIRECTED PRN (Reason: Chest Pain) lisinopril 5 mg Tablet 5 mg PO QAM sertraline [Zoloft] 50 mg Tablet 50 mg PO HS metoprolol tartrate 25 mg Tablet 25 mg PO BID Discharge Orders: Discharge Order (Routine); Ordered 05/30/24 Ordered By: Cherelle Uribe Admission Data Admit Date/Time: 05/29/24 15:54 Attending Provider: Filiberto Shields Admit Provider: Filiberto Rea Primary Care Provider: Sobia ORTIZ Other Providers: Franko Santana; Filiberto Rea Hospital Stay Data Consultations 05/29/24 15:46 Consult Urology Routine 05/29/24 16:58 ED Decision to Admit Stat Procedures Performed Operation Date: 05/30/24 17:00 Actual Procedures p Cystoscopy(Not Applicable) - Franko Santana MD s Ureteral Stent Insertion on the left(Left) - Franko Santana MD Diagnostic Imagining Performed Abdomen/Pelvis CT 05/29/24 11:[address] WITH IV CONTRAST CT DOSE: 1740.64 mGy.cm HISTORY: renal colic, left (12 mm on xr), hydro? TECHNIQUE: Multiaxial CT images of the abdomen and pelvis were performed following the IV administration of 90 cc of Optiray, A dose lowering technique was utilized adhering to the principles of ALARA. COMPARISON STUDY: None FINDINGS: There are diffuse coronary artery calcifications. ABDOMEN: Liver, gallbladder, spleen, pancreas, and adrenal glands are unremarkable. There are a few small bilateral renal calculi. There is no hydronephrosis on the right. There is mild hydronephrosis on the left. There is a 1.2 cm calculus proximally in the left ureter. No other ureteral calculi are seen. No abdominal aortic aneurysm. Pelvis: Prostate is enlarged. Urinary bladder is nondistended. No bowel inflammation or obstruction. No free fluid, free air, or abscess. Normal appendix. No enlarged adenopathy. There are mild degenerative changes at the lumbar spine and hips. IMPRESSION: 1.2 cm calculus proximal left ureter causes mild left hydrone phrosis. ACT 112: Negative or not required by law. The above report was generated using voice recognition software. It may contain grammatical, syntax or spelling errors. Electronically signed by: Adrian Galindo M.D. 05/29/2024 1:32 PM Abdomen Fluoroscopy 05/30/24 00:00 FL KUB CLINICAL HISTORY: LEFT STENT COMPARISON STUDY: None FLUOROSCOPY TIME: 7 seconds FLUOROSCOPY IMAGES: 2 EXPOSURE DOSE: 3 mGy FINDINGS: Fluoroscopy was provided for urologic procedure. IMPRESSION: Intraoperative fluoroscopy. ACT 112: Negative or not required by law. Electronically signed by: Adrian Galindo M.D. 05/30/2024 2:06 PM Pending Results Patient Have Any Pending Studies at Discharge: No Discharge Instructions Given to Patient (Per Discharging Provider) You were hospitalized after having back pain found to be from kidney stones. You were seen by urology and taken to the OR to have a stent placed on 05/[address] Santana. You will need to follow up with urology for stent removal and stone treatment. Medication Changes/Recommendations: * Continue flomax daily while stent in place - this is to help with easier passage of urine * Pyridium as needed for pain with urination - this can cause your urine/feces to be discolored/orange * Pain control - can utilize tylenol and ibuprofen It is normal to still have discomfort in the flank area while the stent is in place, this pain may be worse with movement. Blood tinged urine can also be common. If you are having persistent dark bloody urine or thick bloody urine for >8 hours please contact your urologist. It is important that you are staying hydrated while the stent is in place. The urology office should be contacting you to schedule and appointment. Please contact the urologist if you have any uncontrolled pain, fevers > 100F, or inability to urinate. [phone] Total Time Total Time Spent Total Time Spent (In Minutes): Time spent day of discharge 45 minutes including direct patient care, medication reconciliation, documentation, review of labs and images, and coordination of care. Coding Level of Care Code 89146 INP/OBS DISCH >30 MIN Diagnoses Kidney stone on left side N20.0 CAD (coronary artery disease) I25.10 H/O heart artery stent Z95.5
[2024-05-30] MEDS: ONDANSETRON INJ 2 MG/ML 2 ML VIAL IV PRN (15:08)
[2024-05-30 15:10] VITALS: TEMP 98.1
[2024-05-30 16:25] VITALS: BP 156/96; PULSE 80
== END 2024-05-30 18:03 | DRG 661 ==
LOC: ED 11:03 → SUATTDRO 15:54 → 3E 15:54